=== PATIENT | male | born 1950 | race Caucasian/White ===

== ENCOUNTER 2021-12-26 17:43 | Emergency (ER) | payer MEDICARE, OTHER, SELFPAY ==
--- NOTE | ~2021-12-26 | CT_ITS ---
EXAMINATION: NONCONTRAST HEAD CT NONCONTRAST MAXILLOFACIAL CT NONCONTRAST CERVICAL SPINE CT INDICATION INFORMATION: Status post fall with head injury COMPARISON: None TECHNIQUE: Separate noncontrast CT examinations of the head, maxillofacial bones, and cervical spine were performed. Coronal and sagittal images were created for each examination at the technologist workstation. This CT examination was performed using dose optimization techniques as appropriate, variously including the following: *Automated exposure control *Adjustment of mA and/or kV according to patient size (this includes techniques or standardized protocols for targeted exams where dose is matched to indication/reason for exam; i.e. extremities or head) *Use of iterative reconstruction technique DLP: 1680 mGy-cm FINDINGS: HEAD: No intra or extra-axial fluid collection, hemorrhage, or mass. No midline shift or herniation. Basal cisterns are patent. Lockwood-white matter differentiation is maintained. No territorial encephalomalacia.. No hydrocephalus. No significant volume loss. Patchy periventricular and deep white matter hypoattenuation is consistent with mild small vessel ischemic changes. Mild right frontal scalp soft tissue swelling/small hematoma. No calvarial fracture. The mastoid air cells are well aerated. MAXILLOFACIAL: No acute facial bone fractures are seen. Minimal mucosal thickening along the floor the maxillary antra bilaterally. Paranasal sinuses otherwise normally aerated. The mandibular heads are normally positioned in the glenoid fossa. The orbits demonstrate a normal appearance bilaterally. The globes are intact. No evidence of retrobulbar hemorrhage. CERVICAL SPINE: Alignment:Mild reversal of normal cervical lordosis. Minimal grade 1 anterolisthesis at C4-C5 and C7-T1. No additional subluxation. Vertebra:No acute fracture. No prevertebral soft tissue swelling. Degenerative disc disease:Advanced multilevel cervical and upper thoracic spondylosis characterized by disc height loss, endplate sclerosis, and endplate proliferative changes. Findings are most advanced at C4-C5, C5-C6, C6-C7, and T2-T3. Multilevel bilateral facet arthrosis. Right facet joint ankylosis at C4-C5. Other findings:No cervical lymphadenopathy. Visualized thyroid gland is unremarkable. Visualized lung apices are clear. CT/CT cervical spine wo con IMPRESSION: 1. No intracranial hemorrhage or calvarial fracture. 2. Mild right frontal scalp soft tissue swelling/small hematoma. 3. No acute facial bone fracture. 4. No traumatic subluxation or acute cervical spine fracture.
--- NOTE | ~2021-12-26 | XR_ITS ---
EXAMINATION: XR hand wrist LT CLINICAL INFORMATION: Reason for Exam fall /pain COMPARISON: None. TECHNIQUE: 3 views left hand; scaphoid view left wrist FINDINGS: No acute fracture or dislocation is identified. Healed fracture deformity of the fifth metacarpal. Small well-corticated bone fragment along the ulnar aspect of the radiocarpal compartment may represent sequela of remote injury or possibly a small intra-articular body. Joint spaces the wrist are maintained. Minimal osteophyte formation at the first CMC joint. Minimal DIP joint osteoarthritic changes as well. XR/XR hand wrist LT IMPRESSION: 1. No acute fracture or dislocation. 2. Healed fracture deformity of the fifth metacarpal. 3. Mild osteoarthritic changes at the first CMC joint and DIP joints.
[2021-12-26 17:58] VITALS: BP 151/66; PULSE 93; RESP 18; TEMP 37; O2SAT 97; BMI 26.6
--- NOTE | 2021-12-26 19:29 | ED_ITS ---
HPI - Fall General Chief Complaint: Fall Stated Complaint: fall/Head inj Time Seen by Provider: 12/26/21 18:18 Source: patient and family Mode of arrival: ambulatory History of Present Illness HPI Narrative: Patient otherwise is in general good health was going down stairs holding couple of bags in both hands missed the step and fell down about 3 steps hitting his forehead to the ground skin abrasion to the right moody and soft tissue injury to the left and no loss of consciousness no seizures no chest pain no syncope has superficial laceration on the right side of forehead Related Data Allergies Allergy/AdvReac Type Severity Reaction Status Date / Time No Known Allergies Allergy Verified 12/26/21 18:18 Review of Systems Review of Systems: Yes all other systems are reviewed and are negative [facility] Social History Social History Alcohol intake: never Patient Tobacco Use Status: Never used Tobacco Use of substances other than those prescribed or required for medical reasons: No Advance Directives: No Advance Directives Information Provided: No Physical Exam Vital Signs: Vital Signs: Last Vital Signs Temp 97.7 F 12/26/21 20:20 Pulse 85 12/26/21 20:20 Resp 14 12/26/21 20:20 BP 155/75 H 12/26/21 20:20 Pulse Ox 97 12/26/21 20:20 O2 Del Method 12/26/21 20:20 BMI result Body Mass Index 26.6 Critical Care Time Critical Care Time Critical Care Time: No Discharge Plan Discharge Clinical Impression: Fall (on) (from) other stairs and steps, initial encounter, Facial laceration Patient Disposition: Home, Self-Care Instructions: Laceration (ED), Fall Prevention (ED) Additional Instructions: Local care as advised Suture removal in 7- 10 days Interventions: ED Discharge Assessment Last Done: 12/26/21 20:58 Discharge Date/Time: 12/26/21 21:00
[2021-12-26] MEDS: Lidocaine HCl 1 % MPF 2 ML VIAL 4 ML INFILTRATI (20:19)
--- NOTE | 2021-12-26 20:19 | PC.NURSE ---
Lidocaine given by provider for wound.
[2021-12-26 20:20] VITALS: BP 155/75; PULSE 85; RESP 14; TEMP 36.5; O2SAT 97
== END 2021-12-26 21:00 | disposition home or self-care (01) ==
PROVIDERS: Emergency Provider Internal Medicine
DX: S01.81XA Laceration without foreign body of other part of head, initial encounter (principal); R51.9 Headache, unspecified; M54.2 Cervicalgia; M25.532 Pain in left wrist; M79.642 Pain in left hand; W10.9XXA Fall (on) (from) unspecified stairs and steps, initial encounter; Y93.9 Activity, unspecified; Y92.9 Unspecified place or not applicable; Y99.9 Unspecified external cause status; Z79.899 Other long term (current) drug therapy
CPT/HCPCS: 12011; 70450; 70486; 72125; 73110; 73130; 99284

== ENCOUNTER 2023-02-23 10:33 | Outpatient (REF) | payer MEDICARE, OTHER, SELFPAY ==
[2023-02-23 12:56] LABS: MANUAL DIFF FLAG NO
[2023-02-23 13:08] LABS: Basophils Percent Auto 0.4 % (0-2); Eosinophils Absolute Auto 0.3 X10*3/uL (0.0-0.4); Eosinophils Percent Auto 3.4 % (0-4); Hematocrit 42.4 % (42.0-52.0); Imm Gran Abs Auto 0.02 X10*3/uL (0.00-0.03); Imm Gran Pct Auto 0.3 % (0.0-0.4); Lymphocytes Absolute Auto 1.6 X10*3/uL (1.2-4.9); Lymphocytes Percent Auto 21.7 % (20-40); Mean Corpuscular Volume 90.8 fL (80.0-98.0); Mean Platelet Volume 11.6 fL (9.4-12.4); Monocytes Absolute Auto 1.1 X10*3/uL (0.1-1.2); Monocytes Percent Auto 14.8 % (2-11); Neutrophils Absolute Auto 4.4 x10*3/uL (2.0-8.3); Neutrophils Percent Auto 59.4 % (45-73); Platelet Count 199 X10*3/uL (160-400); Red Blood Count 4.67 X10*6/uL (4.60-5.80); Red Cell Distribution Width 13.7 % (11.0-16.0); White Blood Count 7.3 X10*3/uL (4.8-10.8)
[2023-02-23 13:24] LABS: Alanine Aminotransferase 16 U/L (0-40); Albumin Level 4.4 g/dL (3.5-5.0); Alkaline Phosphatase 60 U/L (39-117); Anion Gap 12 (12-20); Aspartate Amino Transferase 20 U/L (5-37); Bilirubin Total 0.8 mg/dL (0.0-1.0); Blood Urea Nitrogen 26 mg/dL (9-16); Calcium 9.4 mg/dL (8.4-10.2); Carbon Dioxide 24 mmol/L (22-29); Chloride 107 mmol/L (96-108); Cholesterol 132 mg/dL (<200); Estimated Glomerular Filt Rate > 60; Glucose Random 123 mg/dL (60-115); HDL Cholesterol 42 mg/dL (>40); LDL Cholesterol Calculated 75 mg/dL (<100); Potassium 4.4 mmol/L (3.3-5.1); Sodium 139 mmol/L (135-145); Total Protein 6.8 g/dL (6.5-8.0); Triglycerides 75 mg/dL (<150)
[2023-02-23 13:27] LABS: Estimated Average Glucose 126 mg/dL
[2023-02-23 14:05] LABS: Creatinine Urine 169.04 mg/dL; Microalbum/Creatinine Ratio Ur 4.7 ug/mg cr (<30)
== END 2023-02-23 10:34 | disposition home or self-care (01) ==
LOC: HO.HMGCLDS 10:33
PROVIDERS: PCP Internal Medicine; Visit Provider Internal Medicine
DX: E11.8 Type 2 diabetes mellitus with unspecified complications (principal); E78.5 Hyperlipidemia, unspecified; I34.0 Nonrheumatic mitral (valve) insufficiency; I11.0 Hypertensive heart disease with heart failure; I50.32 Chronic diastolic (congestive) heart failure; N40.0 Benign prostatic hyperplasia without lower urinary tract symptoms
CPT/HCPCS: 36415; 80053; 80061; 82043; 82570; 83036; 85025

== ENCOUNTER 2023-04-14 11:49 | Day surgery (SDC) | payer MEDICARE, OTHER, SELFPAY ==
[2023-04-12 14:05] VITALS: BMI 27.3
--- NOTE | 2023-04-13 12:13 | HO.ANESPROP2 ---
Documented by User: Mercedes Fong NP 04/13/23 12:20 HPI - Anesthesia Eval Consult details Narrative: 72yo M for Colonoscopy Follows [facility] Cardiology for MVP, MR - Last office visit 01/2023. asymptomatic, stable with routine monitoring. Consider mitral clip in future. [facility], LAT[facility] Past Medical History Medical History Elevated cholesterol HTN (hypertension) Mitral valve prolapse Diabetes Surgical History Surgical History Hx of appendectomy H/O colonoscopy Social History Social History Are you a primary personal care attendant to a significant other at home: No Do you presently have visiting nurse or other home services: No Alcohol intake: never Patient Tobacco Use Status: Never used Tobacco Meds Allergies Allergy/AdvReac Type Severity Reaction Status Date / Time No Known Allergies Allergy Verified 12/26/21 18:18 Home Medications Medication Instructions Recorded Confirmed Last Taken Type amlodipine 10 mg tablet 10 mg PO DAILY 04/12/23 04/12/23 Unknown History metformin 500 mg tablet 500 mg PO BID 04/12/23 04/12/23 Unknown History rosuvastatin 10 mg tablet 10 mg PO BEDTIME 04/12/23 04/12/23 Unknown History valsartan 320 mg tablet 320 mg PO DAILY 04/12/23 04/12/23 Unknown History Exam Height,Weight and Vital Signs: Height 5 ft 9 in Weight 83.915 kg Pertinent Lab Results Pertinent Lab Results: Laboratory Tests 02/23/23 10:42 WBC 7.3 Hgb 14.0 Hct 42.4 Plt Count 199 Sodium 139 Potassium 4.4 Chloride 107 Carbon Dioxide 24 BUN 26 H Creatinine 1.04 Narrative Narrative: RICHARD 12/2022 LV size is nml. LV sys function is nml LVEF 60-65% AV trileaflet. AV appears mildly calcified. AV leaflet opening mildly decreased. No significant . No AR. Real time 3D imaging reveals mildly reduced leaflet motion Moderate prolapse of the middle (P2) scallop of the mitral valve. Severe MR. MR jet is directed anteriorly. Real time 3D imaging reveals P2 prolapse. RV is normal in size and function. Tricuspid valve is grossly normal. Mild TR Left upper pulmonary vein demonstrates nml venous return. Right upper pulmo vein demonstrates systolic flow reversal. Assessment and Plan Assessment Anesthesia Assessment: Chart Reviewed Documented by User: Luna Ramirez MD 04/14/23 12:23 [facility] Past Medical History Medical History Elevated cholesterol HTN (hypertension) Mitral valve prolapse Diabetes Surgical History Surgical History Hx of appendectomy H/O colonoscopy History of Problems with Anesthesia: No Social History Social History Are you a primary personal care attendant to a significant other at home: No Do you presently have visiting nurse or other home services: No Alcohol intake: never Patient Tobacco Use Status: Never used Tobacco Meds Allergies Allergy/AdvReac Type Severity Reaction Status Date / Time No Known Allergies Allergy Verified 12/26/21 18:18 Home Medications Medication Instructions Recorded Confirmed Last Taken Type amlodipine 10 mg tablet 10 mg PO DAILY 04/12/23 04/12/23 Unknown History metformin 500 mg tablet 500 mg PO BID 04/12/23 04/12/23 Unknown History rosuvastatin 10 mg tablet 10 mg PO BEDTIME 04/12/23 04/12/23 Unknown History valsartan 320 mg tablet 320 mg PO DAILY 04/12/23 04/12/23 Unknown History Exam Airway Mallampati Class: III TM Dist: >3cm Neck ROM: Full Loose/Missing/Broken Teeth: No Heart: RRR Lungs: CTA Assessment and Plan Assessment Anesthesia Assessment: Anesthesia Plan Discussed Final Anesthetic Review History of Problems with Anesthesia: No NPO: Yes ASA Class: II Final Preanesthetic Review: Meds/Allgs Chart Reviewed, Consent Obtained/Reviewed and Anes Risks/Benef Reviewed Patient Risk: Low Procedure Risk: Low Anesthetic Plan Anesthetic Plan: MAC: Disposition: Standard PACU
[2023-04-14 12:15] VITALS: BP 150/71; PULSE 86; RESP 16; TEMP 36.5; O2SAT 98
--- NOTE | 2023-04-14 12:15 | MHC.SHP ---
Pre-Procedural Eval Section A Date of Service: 04/14/23 Section B Chief Complaint: screening Details of Present Illness: see H&P no changes Relevant Family History (Specify if Yes): No Relevant Social History: None Present Medications: see Short Stay Collaborative assessment Medical History: No relevant PMH History of Previous Operations: No relevant previous surgery Allergies: Allergies Allergy/AdvReac Type Severity Reaction Status Date / Time No Known Allergies Allergy Verified 12/26/21 18:18 Review of Systems Sugical H&P ROS: Negative: Constitution, Cardiovascular, Respiratory, Neurological, Psychiatric, Hem-Onc, Allergic/Immunologic, Gastrointestinal, Genitourinary, Musculoskeletal, Integumentary, Endocrine and Eyes/Ears/Nose/Throat Exam Surgical H&P Exam: Normal: HEENT, Normal: Heart, Normal: Lungs, Normal: Extremities, Normal: Abdomen, Normal: Skin and Normal: Neurological Plan Diagnosis/Plan: Unchanged I have reviewed the history and physical and performed a pertinent physical examination on my patient. No changes have occurred unless specified. Time Spent With Patient Time: Total time managing care of this patient today ____ minutes.
[2023-04-14] MEDS: Lactated Ringers 1,000 ML 100 ML IVCONT (12:18)
[2023-04-14 12:20] LABS: Glucose, Whole Blood 117 mg/dL (60-115)
[2023-04-14 13:16] VITALS: BP 104/57; PULSE 78; RESP 16; TEMP 36.6; O2SAT 96
[2023-04-14 13:31] VITALS: BP 128/58; PULSE 81; RESP 16; O2SAT 100
[2023-04-14 13:46] VITALS: BP 141/71; PULSE 74; RESP 18; TEMP 36.7; O2SAT 98
--- NOTE | 2023-04-14 19:03 | OP_ITS ---
DATE OF SERVICE: 04/14/2023 SURGEON: Candido Millard MD INDICATIONS: Colon cancer screening. PREOPERATIVE DIAGNOSIS: POSTOPERATIVE DIAGNOSIS: PROCEDURE PERFORMED: Colonoscopy to the right colon. ESTIMATED BLOOD LOSS: COMPLICATIONS: ANESTHESIA: Monitored anesthesia care. ASSISTANTS: SPECIMENS: DESCRIPTION OF PROCEDURE: A history and physical performed the risks and benefits of the procedure were explained to the patient. Informed consent was obtained. The patient was placed in the left lateral decubitus position. A digital rectal exam was performed and was found to be normal. The Olympus pediatric video colonoscope was introduced into the rectum and advanced to the right colon. The scope could not be advanced below the ileocecal valve because of a left inguinal hernia with a loop of bowel in it. This was record recognized upon withdrawal of the colonoscope, examination was performed, and the scope was removed. He tolerated the procedure well and was returned to recovery in stable condition. FINDINGS: The terminal ileum was not examined. The ileocecal valve was identified but the scope could not be advanced below this. The quality of the prep was good. No polyps were identified. On withdrawal of the colonoscope, it became evident that the scope had entered left inguinal hernia with the scope transilluminating through the left inguinal area and scrotum. There was puckering of the mucosa consistent with this. No polyps were identified. Retroflexed examination showed some internal hemorrhoids. IMPRESSION: 1. Incomplete colonoscopy, 95%, due to left inguinal hernia as above. 2. Hemorrhoids. RECOMMENDATION: 1. Follow up colonoscopy will be arranged after the patient has undergone inguinal hernia repair. 2. Dr. Jaime was consulted postoperatively for outpatient evaluation and management of the hernia. MD FERMÍN [place]/MANUEL / [id number]
== END 2023-04-14 14:10 | disposition home or self-care (01) ==
PROVIDERS: PCP Internal Medicine; Visit Provider Internal Medicine Gastroenterology
PROC: 0DJD8ZZ Inspection of Lower Intestinal Tract, Via Natural or Artificial Opening Endoscopic (ICD-10-PCS; CPT 45378; principal; 2023-04-14 13:00)
DX: Z12.11 Encounter for screening for malignant neoplasm of colon (principal); K40.90 Unilateral inguinal hernia, without obstruction or gangrene, not specified as recurrent; K64.8 Other hemorrhoids; K56.2 Volvulus; E11.9 Type 2 diabetes mellitus without complications; E78.5 Hyperlipidemia, unspecified; I10 Essential (primary) hypertension; Z79.899 Other long term (current) drug therapy; Z79.02 Long term (current) use of antithrombotics/antiplatelets; Z79.84 Long term (current) use of oral hypoglycemic drugs
CPT/HCPCS: G0121; 82947; J2704

== ENCOUNTER 2023-04-28 10:30 | Outpatient (AMB) | payer MEDICARE, OTHER, SELFPAY ==
--- NOTE | 2023-04-28 10:36 | A.OFFVIS_ITS ---
Intake Vital Signs 04/28/23 10:45 Weight 186 lb BP 158/76 H Blood Pressure Location Rt brachial Position Sitting Pulse 86 Intake Visit Reasons: Hernia Intake Note: Patient referred by Dr. Millard for Lt inguinal hernia. Recently noticed after colonoscopy 2wks ago. Patient c/o: denies pain, diarrhea, nausea. [employer] Consultant Required: No Accompanied by: Self / Same As Patient Allergies No Known Allergies Allergy (Verified 04/28/23 10:43) HPI HPI Comments History of Present Illness Details Patient presents with a left inguinal hernia. He has had this indeterminate amount of size. Is quite large. Patient had recent colonoscopy where the GI doctor had difficulty with the procedure secondary to the colon entering the hernia sac. Patient does minimal lift heavy lifting these days. He is tolerating his diet. He is having no significant GI issues. Chart was reviewed patient evaluated [facility] Medical History Elevated cholesterol HTN (hypertension) Mitral valve prolapse Diabetes Surgical History Hx of appendectomy H/O colonoscopy Social History Are you a primary hearing care practitioner to a significant other at home: No Do you presently have visiting nurse or other home services: No Alcohol intake: current Alcohol intake frequency: holidays/special occasions only Alcohol type: wine Patient Tobacco Use Status: Never used Tobacco Physical Exam Vital Signs: Last Vital Signs Pulse 86 04/28/23 10:45 BP 158/76 H 04/28/23 10:45 Chest Other: Chest breath sounds bilaterally, HS 1 in 2 GI Other: Patient was examined both supine and standing with Valsalva. Right groin negative. Genitalia with right side within normal limits. Massive complete/scrotal left inguinal hernia. Difficult to palpate left testicle. Abdomen otherwise moderately corpulent, soft, benign Assessment & Plan Assessment & Plan (1) Right inguinal hernia: Code(s): K40.90 - Unilateral inguinal hernia, without obstruction or gangrene, not specified as recurrent Plan Risks, benefits, alternatives of open left inguinal hernia repair with mesh were reviewed with the patient included but not limited to bleeding, infection, recurrence, numbness, pain, scarring the patient wished to proceed. All questions answered. Arrangements will be made for this on the day which is convenient for him. Coding Level of Care Code New Pt Level 5 (63510) Diagnoses Right inguinal hernia K40.90
[2023-04-28 10:45] VITALS: BP 158/76; PULSE 86
== END 2023-04-28 11:21 | disposition home or self-care (01) ==
PROVIDERS: PCP Internal Medicine; Referring Provider Internal Medicine; Visit Provider Surgery
DX: K40.90 Unilateral inguinal hernia, without obstruction or gangrene, not specified as recurrent (principal)
CPT/HCPCS: 99204

== ENCOUNTER → 2023-04-28 10:30 | Outpatient (BNVA) | payer MEDICARE, OTHER, SELFPAY | PROVIDERS: PCP Internal Medicine; Referring Provider Internal Medicine; Visit Provider Surgery | DX: K40.90 Unilateral inguinal hernia, without obstruction or gangrene, not specified as recurrent (principal) | CPT/HCPCS: 99202 ==

== ENCOUNTER 2023-05-25 07:51 | Day surgery (SDC) | payer MEDICARE, OTHER, SELFPAY ==
--- NOTE | 2023-05-23 13:53 | HO.ANESPROP2 ---
Documented by User: Mercedes Fong NP 05/23/23 13:56 HPI - Anesthesia Eval Consult details Narrative: 72yo M for Left Open Hernia Repair Inguinal w/mesh Follows [facility] Cardiology for MVP, MR - Last office visit 03/2023. asymptomatic, stable with routine monitoring. Consider mitral valve repair or clip in future. s/p colo 03/2023 with [facility] Active Problems Active Problems: All Active Problems (Updated 04/28/23 @ 11:21 by Damion Jaime MD) Right inguinal hernia (Acute) Past Medical History Medical History Elevated cholesterol HTN (hypertension) Mitral valve prolapse Diabetes Surgical History Surgical History Hx of appendectomy H/O colonoscopy History of Problems with Anesthesia: No Social History Social History Are you a primary rn critical care to a significant other at home: No Do you presently have visiting nurse or other home services: No Alcohol intake: current Alcohol intake frequency: holidays/special occasions only Alcohol type: wine Patient Tobacco Use Status: Never used Tobacco Are you DNR?: No Advance Directives: No Advance Directives Information Provided: Yes Nutrition Risks: No Nutritional Risk Meds Allergies Allergy/AdvReac Type Severity Reaction Status Date / Time No Known Allergies Allergy Verified 05/25/23 08:04 Home Medications Medication Instructions Recorded Confirmed Last Taken Type amlodipine 10 mg tablet 10 mg PO DAILY 04/12/23 05/25/23 05/25/23 History metformin 500 mg tablet 500 mg PO BID 04/12/23 05/25/23 Unknown History rosuvastatin 10 mg tablet 10 mg PO BEDTIME 04/12/23 05/25/23 Unknown History valsartan 320 mg tablet 320 mg PO DAILY 04/12/23 05/25/23 Unknown History Exam Pertinent Lab Results Pertinent Lab Results: Laboratory Tests 02/23/23 10:42 WBC 7.3 Hgb 14.0 Hct 42.4 Plt Count 199 Sodium 139 Potassium 4.4 Chloride 107 Carbon Dioxide 24 BUN 26 H Creatinine 1.04 Narrative Narrative: RICHARD 12/2022 LV size is nml. LV sys function is nml LVEF 60-65% AV trileaflet. AV appears mildly calcified. AV leaflet opening mildly decreased. No significant . No AR. Real time 3D imaging reveals mildly reduced leaflet motion Moderate prolapse of the middle (P2) scallop of the mitral valve. Severe MR. MR jet is directed anteriorly. Real time 3D imaging reveals P2 prolapse. RV is normal in size and function. Tricuspid valve is grossly normal. Mild TR Left upper pulmonary vein demonstrates nml venous return. Right upper pulmo vein demonstrates systolic flow reversal. Assessment and Plan Assessment Anesthesia Assessment: Chart Reviewed Final Anesthetic Review History of Problems with Anesthesia: No Documented by User: Maddy Blackwell MD 05/25/23 09:39 [facility] Past Medical History Medical History Elevated cholesterol HTN (hypertension) Mitral valve prolapse Diabetes Family History Family history of problems with anesthesia: No Surgical History Surgical History Hx of appendectomy H/O colonoscopy Social History Social History Are you a primary rn critical care to a significant other at home: No Do you presently have visiting nurse or other home services: No Alcohol intake: current Alcohol intake frequency: holidays/special occasions only Alcohol type: wine Patient Tobacco Use Status: Never used Tobacco Are you DNR?: No Advance Directives: No Advance Directives Information Provided: Yes Nutrition Risks: No Nutritional Risk Meds Allergies Allergy/AdvReac Type Severity Reaction Status Date / Time No Known Allergies Allergy Verified 05/25/23 08:04 Home Medications Medication Instructions Recorded Confirmed Last Taken Type amlodipine 10 mg tablet 10 mg PO DAILY 04/12/23 05/25/23 05/25/23 History metformin 500 mg tablet 500 mg PO BID 04/12/23 05/25/23 Unknown History rosuvastatin 10 mg tablet 10 mg PO BEDTIME 04/12/23 05/25/23 Unknown History valsartan 320 mg tablet 320 mg PO DAILY 04/12/23 05/25/23 Unknown History Exam Airway Mallampati Class: II TM Dist: >3cm Neck ROM: Full Heart: rrr Lungs: cta Assessment and Plan Assessment Anesthesia Assessment: Anesthesia Plan Discussed Final Anesthetic Review Family History of Problems with Anesthesia: No NPO: Yes ASA Class: III Final Preanesthetic Review: No Changes in Pt Med Stat, Meds/Allgs Chart Reviewed, Consent Obtained/Reviewed and Anes Risks/Benef Reviewed Patient Risk: Intermediate Procedure Risk: Low Anesthetic Plan Anesthetic Plan: GA Disposition: Standard PACU
--- NOTE | 2023-05-24 13:34 | MHC.SHP ---
Pre-Procedural Eval Section A Date of Service: 05/24/23 The patient is an INPATIENT: No Changes since office visit: No Cold of Flu in the past 2 weeks, No New Medical Problems, No Changes in Medication and No Patient answered all questions The History & Physical has been completed within 30 days and I have reviewed it.: Yes Section B Chief Complaint: Unilateral inguinal hernia, without obstruction or Allergies: Allergies Allergy/AdvReac Type Severity Reaction Status Date / Time No Known Allergies Allergy Verified 04/28/23 10:43 Plan I have reviewed the history and physical and performed a pertinent physical examination on my patient. No changes have occurred unless specified. Time Spent With Patient Time: Total time managing care of this patient today ____ minutes.
[2023-05-25 08:01] VITALS: BMI 28.8
[2023-05-25] MEDS: Lactated Ringers 1,000 ML 100 ML IVCONT (08:16)
[2023-05-25 08:23] VITALS: BP 149/86; PULSE 76; RESP 18; TEMP 36.7; O2SAT 96
[2023-05-25 08:36] LABS: Glucose, Whole Blood 133 mg/dL (60-115)
--- NOTE | 2023-05-25 12:12 | P.OP_ITS ---
Operative Note Operative Note Date of Service: 05/25/23 Narrative: Preoperative diagnosis: [] Massive scrotal/complete incarcerated left inguinal hernia Postop diagnosis: [] Same Procedure [] open repair of incarcerated complete/scrotal left inguinal hernia with Bard mesh Surgeon: [] [employer] Consultant: [] Bhavesh Type of Anesthesia: [] General Indication for surgery: [] Massive incarcerated left inguinal hernia with the entire sigmoid colon in the scrotum from an enormous indirect hernia Findings: [] Patient brought to the operating room, placed on the operative table in a supine position, after an adequate level of general anesthesia was induced, the left groin and scrotal area were prepped and draped in usual sterile fashion. Using a small left para- inguinal incision, this carried down through skin, subcutaneous tissue, Luli's fascia. External oblique fibers were opened in the direction with care to isolate and preserve the ilioinguinal nerve throughout the procedure. Massive indirect hernia sac which extended into the scrotum was identified. Spermatic cord and sac were encircled, and hernia sac delivered from the scrotum. Patient had markedly attenuated inguinal canal structures secondary to the massive size and chronicity of the hernia. No direct hernia was demonstrated. The indirect hernia sac was opened and omental and sigmoid colon contents were reduced in the indirect defect, opening of was enlarged nor to accomplish this.. Redundant hernia sac was amputated and remaining peritoneum closed. Defect was repaired in the following manner; initially a Bard plug was placed in the indirect defect and this was sutured inferi digna to the inguinal ligament and superiorly to the transversalis fascia using interrupted 0 Ethibond suture.. A Bard patch was then placed in the inguinal floor and sutured inferiorly to the inguinal ligament, and superiorly to the transversalis fascia using interrupted 0 Ethibond suture. Graft was bifurcated to encircle the internal ring at completion which admitted 1 fingertip. Wound was irrigated, secured hemostasis, and closed in the following manner; external oblique fascia was closed using running 2-0 Vicryl suture. Luli's fascia was reapproximated using interrupted 3-0 Vicryl sutures. Interrupted inverted deep dermal 3-0 Vicryl sutures followed by running subcuticular 4-0 Vicryl sutures were placed. Steri-Strips and sterile dressings were applied. Patient underwent ilioinguinal block at the beginning of the procedure and infiltration of the incision at completion using 0.5% Marcaine. Sponge, needle, and instrument counts were reported correct. Patient tolerated the procedure well and emerged from anesthesia stable condition. EBL minimal. Ipsilateral testicle was intrascrotal at completion.
[2023-05-25 12:20] VITALS: BP 147/73; PULSE 91; RESP 18; TEMP 36.3; O2SAT 98
[2023-05-25 12:25] VITALS: BP 123/61; PULSE 90; RESP 15; O2SAT 94
[2023-05-25 12:30] VITALS: BP 135/48; PULSE 87; RESP 18; O2SAT 96
[2023-05-25 12:35] VITALS: BP 100/58; PULSE 88; RESP 18; O2SAT 94
[2023-05-25 12:50] VITALS: BP 136/68; PULSE 85; RESP 16; TEMP 36.1; O2SAT 95
== END 2023-05-25 13:59 | disposition home or self-care (01) ==
PROVIDERS: PCP Internal Medicine; Visit Provider Surgery
PROC: (CPT 49507; principal; 2023-05-25 09:30)
DX: K40.30 Unilateral inguinal hernia, with obstruction, without gangrene, not specified as recurrent (principal); E11.9 Type 2 diabetes mellitus without complications; E78.00 Pure hypercholesterolemia, unspecified; I10 Essential (primary) hypertension; I34.1 Nonrheumatic mitral (valve) prolapse; Z79.84 Long term (current) use of oral hypoglycemic drugs; Z79.899 Other long term (current) drug therapy
CPT/HCPCS: 49507; 82947; 88302; C1781; J0131; J0690; J1100; J1885; J2405; J2704; J2795; J3010

== ENCOUNTER → 2023-05-25 07:51 | Outpatient (BNV) | payer MEDICARE, OTHER, SELFPAY | PROVIDERS: PCP Internal Medicine; Visit Provider Surgery | DX: K40.91 Unilateral inguinal hernia, without obstruction or gangrene, recurrent (principal) | CPT/HCPCS: 49507 ==

== ENCOUNTER 2023-06-06 13:37 | Outpatient (AMB) | payer MEDICARE, OTHER, SELFPAY ==
[2023-06-06 13:48] VITALS: BP 151/72; PULSE 82
--- NOTE | 2023-06-06 13:48 | MHC.OFFVIS ---
Intake Vital Signs 06/06/23 13:48 Weight 185 lb BP 151/72 H Blood Pressure Location Rt brachial Position Sitting Pulse 82 Intake Visit Reasons: S/P open LIH w/mesh Intake Note: Patient here s/p open LIH w/mesh on 05-25-23. Patient c/o: mild tenderness along scar line. Denies bleeding, oozing, itch. Taking rx pain meds as needed. Desk Director Required: No Accompanied by: Self / Same As Patient Allergies No Known Allergies Allergy (Verified 06/06/23 13:50) HPI HPI Comments History of Present Illness Details Patient presents for follow-up. He is doing quite well. He is tolerating his diet. He is having regular bowel habits. He has no wound issues or complaints. He is increasing his activity level. [facility] Medical History Left inguinal hernia (05/25/23) Elevated cholesterol HTN (hypertension) Mitral valve prolapse Diabetes Surgical History Hx of appendectomy H/O colonoscopy Social History Are you a primary interior plant caretaker to a significant other at home: No Do you presently have visiting nurse or other home services: No Alcohol intake: current Alcohol intake frequency: holidays/special occasions only Alcohol type: wine Comment: COUNTS CORRECT Patient Tobacco Use Status: Never used Tobacco Physical Exam Vital Signs: Last Vital Signs Pulse 82 06/06/23 13:48 BP 151/72 H 06/06/23 13:48 GI Other: Abdomen is soft. Wound clean dry and intact. Minimal left scrotal swelling which is expected secondary to his massive complete/scrotal hernia with entire sigmoid colon and the hernia sac. Assessment & Plan Assessment & Plan (1) Status post inguinal hernia repair: Code(s): Z98.890 - Other specified postprocedural states; Z87.19 - Personal history of other diseases of the digestive system Plan Patient is doing quite well. He has been given local instructions, and will follow-up p.r.n.. All questions answered. Coding Level of Care Code Global (61097) Diagnoses Status post inguinal hernia repair Z98.890; Z87.19
== END 2023-06-06 14:02 | disposition home or self-care (01) ==
PROVIDERS: PCP Internal Medicine; Visit Provider Surgery
DX: Z98.890 Other specified postprocedural states (principal); Z87.19 Personal history of other diseases of the digestive system
CPT/HCPCS: 99024

== ENCOUNTER → 2023-06-06 13:37 | Outpatient (BNVA) | payer MEDICARE, OTHER, SELFPAY | PROVIDERS: PCP Internal Medicine; Visit Provider Surgery | DX: Z98.890 Other specified postprocedural states (principal); Z87.19 Personal history of other diseases of the digestive system | CPT/HCPCS: 99212 ==